=== PATIENT | male | born 1975 | race Caucasian/White ===

== ENCOUNTER 2016-12-31 18:34 | Emergency (ER) | payer OTHER ==
[~2016-12-31] VITALS: Ht 185.4 cm; Wt 106.6 kg
[~2016-12-31 18:34] MED LIST: BACTRIM DS TAB1 EACH PO; HUMIRA40 MG/0.1 SQ; KEFLEX500 MG PO; NORCO 5-325 TA1 EACH PO; TRIAMCINOLONE A80 G2 TOP
[2016-12-31 18:39] VITALS: BP 160/93
== END 2016-12-31 19:45 | disposition home or self-care (01) ==
LOC: ER 18:34
DX: L40.8 Other psoriasis (principal); Z77.22 Contact with and (suspected) exposure to environmental tobacco smoke (acute) (chronic)